=== PATIENT | female | born 1995 | race Hispanic/Latino ===

== ENCOUNTER 2024-01-30 10:19 | Day surgery (SDC) | payer OTHER ==
[2024-01-30] MEDS ORDERED: Acetaminophen 500 MG TAB ONE (10:28)
[2024-01-30] MEDS: Acetaminophen 500 MG TAB PO SCH (10:29)
[2024-01-30] MEDS: Iron Sucrose Complex 500 MG in Sodium Chloride 0.9% 250 ML 250 ML IVPB SCH (11:20)
[2024-01-30 15:10] VITALS: TEMP 98.3
[2024-01-30 15:40] VITALS: BP 122/71
== END 2024-01-30 15:56 | disposition home or self-care (01) ==
LOC: ONC/OP 10:19
PROVIDERS: ATTEND Family Medicine
DX: O99.019 Anemia complicating pregnancy, unspecified trimester (principal); Z3A.00 Weeks of gestation of pregnancy not specified
CPT/HCPCS: 96365; 96366; J1756; J7050

== ENCOUNTER 2025-02-19 10:03 | Outpatient (CLI) | payer OTHER | END 2025-02-19 10:04 | disposition home or self-care (01) | LOC: ULT 10:03 | PROVIDERS: ATTEND Nurse Practitioner Family | DX: Z00.01 Encounter for general adult medical examination with abnormal findings (principal); R10.20 Pelvic and perineal pain unspecified side | CPT/HCPCS: 76856; 93976 ==